=== PATIENT | male | born 1955 | race Caucasian/White ===

== ENCOUNTER 2016-11-04 11:06 | Emergency (ER) | payer OTHER ==
[~2016-11-04] VITALS: Ht 171.5 cm; Wt 62.4 kg
[2016-11-04 11:13] VITALS: TEMP 36.6; Ht 171.5 cm; Wt 62.4 kg
[2016-11-04 11:33] VITALS: O2SAT 97
[2016-11-04 11:44] LABS: HEMATOCRIT 28.4 % (42-52); MEAN CELL VOLUME 73.8 fL (80-100); MEAN CORPUSCULAR HEMOGLOBIN 23.1 pg (25-34); MEAN CORPUSCULAR HGB CONC 31.3 g/dl (32-36); MEAN PLATELET VOLUME 8.2 fL (7.4-10.4); PLATELET COUNT 517 K/uL (130-400); RED BLOOD COUNT 3.85 M/uL (4.7-6.1); WHITE BLOOD COUNT 8.72 K/uL (4.8-10.8)
[2016-11-04 11:53] LABS: BUN/CREATININE RATIO 19.6 (10-20); CALCIUM 8.9 mg/dl (8.5-10.1); CREATININE 0.91 mg/dl (0.60-1.40); POTASSIUM 3.7 mmol/L (3.5-5.1)
[2016-11-04 11:57] LABS: ALB/GLOB RATIO 0.4 (0.9-2); CKMB/CK RATIO 3.1 (0-3.0)
[2016-11-04 11:59] LABS: INR 1.3 (0.9-1.1); PARTIAL THROMBOPLASTIN RATIO 1.3
--- NOTE | 2016-11-04 12:08 | DIAGNOSTIC IMAGING REPORT ---
CHEST ONE VIEW PORTABLE CLINICAL HISTORY: Chest pain. COMPARISON STUDY: No previous studies for comparison. FINDINGS: Lung volumes are normal. Linear left infrahilar density could reflect atelectasis or calcification.. There is no evidence of pulmonary edema. No consolidation is identified. Cardiomediastinal silhouette is normal. IMPRESSION: No acute cardiopulmonary findings. Electronically signed by: Natanael Zuñiga M.D. 11/04/2016 12:07 PM Dictated Date/Time: 11/04/2016 12:05 PM
[2016-11-04] MEDS ORDERED: ACETAMINOPHEN 325 MG TAB PO PRN (13:15)
[2016-11-04] MEDS ORDERED: SODIUM CHLORIDE 0.9% 1000ML 1,000 ML IV SCH (13:15)
[2016-11-04] MEDS ORDERED: ONDANSETRON INJ 2 MG/ML 2 ML VIAL IV PRN (13:15)
[2016-11-04] MEDS ORDERED: ALUMINUM/MAGNESIUM/SIMETH (MAALOX MAX) 30 ML UDC PO PRN (13:15)
[2016-11-04] MEDS ORDERED: POLYETHYLENE (MIRALAX) 17 GM PACK PO PRN (13:15)
[2016-11-04] MEDS ORDERED: MAGNESIUM HYDROXIDE SUSP 30 ML UDC PO PRN (13:15)
[2016-11-04] MEDS ORDERED: NITROGLYCERIN 0.4 MG SL PER TAB CHARGE SL PRN (13:15)
[2016-11-04] MEDS ORDERED: ZOLPIDEM TARTRATE 5 MG TAB PO PRN (13:15)
[2016-11-04 13:21] VITALS: BP 116/76; PULSE 65; O2SAT 96
[2016-11-04 13:57] LABS: FERRITIN 901.4 ng/ml (8.0-388.0)
[2016-11-04] MEDS ORDERED: IV FLUIDS COMPLETED PRN (15:30)
--- NOTE | 2016-11-04 16:41 | Medical Consult ---
Consultation Date of Consultation: Nov 04, 2016. Attending Physician: Reason for Consultation: chest pain History of Present Illness Pt seen and examined in ER for possible admission but ultimately decided to leave AMA. Pt has not seen a physician in years until being seen today for chest pain by Dr. Parra at [facility] who sent him to the ER. Pt states chest pain started while patient was sitting yesterday and waxed and waned from that time. Pain is described as tightness in the upper chest with radiation to his anterior neck. He states pain is worse with lying flat and deep inspiration and improves with activity. He currently rates pain 09/13. He was mildly SOB with the pain but this resolved. He admits to fatigue. His left thigh was crushed against a pole by a farm animal approximately 2 weeks ago and had pain in the left thigh/ calf after his injury which has resolved. Denies dizziness, syncope, diaphoresis, URI, cough, GUARDADO, palpitations, abdominal pain, reflux, nausea, vomiting, bowel or bladder changes, hematochezia, melena, edema Denies recent travel or heavy lifting. He denies any known medical problems including CAD, HTN, HL, DM, but had not been seen by a physician for years. He denies having echo or stress test in the past. No prior EGD or colonoscopy. Past Medical/Surgical History Medical Problems: (1) No significant past medical history Status: Chronic Surgical Problems: (1) S/P hernia surgery Status: Chronic Family History FH: CAD (coronary artery disease) FATHER (multiple NH's. onset in 50s.) Social History Smoking Status: Never Smoker Alcohol Use: none Drug Use: none Occupation Status: employed (self employed [employer]) Allergies Coded Allergies: No Known Allergies (Unverified , 11/04/16) Home Medications Pt does not take any medications at home. Current Inpatient Medications Current Inpatient Medications Medications (Trade) Dose Ordered Sig/Dmitri Route Start Time Stop Time Status Last Admin Dose Admin Miscellaneous (Iv Fluids Completed) 1 ea PRN PRN N/A 11/04/16 15:30 11/04/17 15:29 Review of Systems Ten point ROS performed with pertinent positives and negatives noted in HPI. Constitutional: + fatigue, + weakness Respiratory: + dyspnea on exertion, + shortness of breath Cardiovascular: + chest pain Abdomen: + GI bleeding (denies of dark stool or blood in stool ), No constipation, No diarrhea, No nausea, No pain, No problem reported, No vomiting Genitourinary - Male: No dysuria, No hematuria, No impotence, No lesions, No penile discharge, No problem reported, No urinary frequency, No urinary hesitancy, No urinary incontinence, No urinary retention, No urinary urgency Neurologic: + vertigo, + weakness Physical Exam Date Time Temp Pulse Resp B/P Pulse Ox O2 Delivery O2 Flow Rate FiO2 11/04/16 13:21 65 16 116/76 96 11/04/16 12:10 64 11/04/16 11:33 97 Room Air 11/04/16 11:13 36.6 69 20 117/71 100 Room Air General Appearance: WD/WN, no apparent distress, + pertinent finding (pleasant alert 61 y/o male, no distress) Head: normocephalic, atraumatic Eyes: normal inspection, PERRL, EOMI ENT: pharynx normal Neck: supple, no JVD, no carotid bruits, trachea midline Respiratory/Chest: lungs clear, normal breath sounds, no respiratory distress Cardiovascular: regular rate, rhythm, no murmur, normal peripheral pulses Abdomen/GI: normal bowel sounds, non tender, soft Extremities/Musculoskelatal: normal inspection, no calf tenderness, no pedal edema Neurologic/Psych: alert, normal mood/affect, oriented x 3, + pertinent finding (grossly nonfocal) Skin: normal color, warm/dry, no rash (no rash on the chest) Laboratory Results Last 24 Hours Test 11/04/16 11:25 11/04/16 11:55 White Blood Count 8.72 K/uL Red Blood Count 3.85 M/uL Hemoglobin 8.9 g/dL Hematocrit 28.4 % Mean Corpuscular Volume 73.8 fL Mean Corpuscular Hemoglobin 23.1 pg Mean Corpuscular Hemoglobin Concent 31.3 g/dl RDW Standard Deviation 45.2 fL RDW Coefficient of Variation 16.6 % Platelet Count 517 K/uL Mean Platelet Volume 8.2 fL Nucleated RBC Absolute Count (auto) 0.00 K/uL Nucleated Red Blood Cells % 0.0 % Absolute Reticulocyte Count 0.04 10^6/uL Percent Reticulocyte Count 0.9 % Prothrombin Time 14.0 SECONDS Prothromb Time International Ratio 1.3 Activated Partial Thromboplast Time 33.8 SECONDS Partial Thromboplastin Ratio 1.3 D-Dimer 860 ug/L FEU Sodium Level 135 mmol/L Potassium Level 3.7 mmol/L Chloride Level 101 mmol/L Carbon Dioxide Level 26 mmol/L Anion Gap 8.0 mmol/L Blood Urea Nitrogen 18 mg/dl Creatinine 0.91 mg/dl Est Creatinine Clear Calc Drug Dose 74.3 ml/min Estimated GFR () 104.3 Estimated GFR (Non- 90.0 BUN/Creatinine Ratio 19.6 Random Glucose 104 mg/dl Calcium Level 8.9 mg/dl Iron Level 14 mcg/dl Total Iron Binding Capacity 182 mcg/dl Ferritin 901.4 ng/ml Total Bilirubin 0.3 mg/dl Aspartate Amino Transf (AST/SGOT) 15 U/L Alanine Aminotransferase (ALT/SGPT) 15 U/L Alkaline Phosphatase 81 U/L Total Creatine Kinase 32 U/L Creatine Kinase MB 1.0 ng/ml Creatine Kinase MB Ratio 3.1 Total Protein 8.6 gm/dl Albumin 2.4 gm/dl Globulin 6.2 gm/dl Albumin/Globulin Ratio 0.4 Bedside Troponin I 0.000 ng/ml Assessment & Plan CHEST PAIN Risk factors- positive family history, no other known risk factors but has not had lipids checked EKG as per cardiology read- normal sinus rhythm, left atrial enlargement, minor anterior ST elevation most consistent with repolarization variant, peaked T waves (consider ischemia, hyperkalemia,etc.), no prior EKG for comparison Initial troponin negative; d dimer elevated ? secondary to recent leg injury CXR- no acute findings Patient declines to stay for ACS rule out- risks explained to patient including risk of arrhythmia and if develops NH at home May be related to anemia Pt prefers to f/u with his new PCP Dr. Parra later today- made appointment MICROCYTIC ANEMIA Hg is 8/9; no prior labs for comparison Declines hematochezia/ melena; Hemoccult negative per ER provider Anemia panel shows low iron, low TIBC, high ferritin Pt instructed to start OTC iron pills, avoid NSAIDs, and f/u with PCP Patient seen in collaboration with Dr. Carranza. Please see her addendum. ATTENDING NOTE : pt seen and examined, in agreement with above consult by Danette MORA[facility] ED consult done as pt refused to be admitted 61 yo Male , Tenriism gentleman does not follow with any Physician in past , recently established care with PCP presents with SOB , chest pain found to be anemia HB ~ 8.9 with microcytosis MCV < 70 never had colonoscopic eval denies of any dark stool or blood in stool , does not take Over the counter NSAID's stool test in ED was Heme negative P/E: gen: no sign of distress HEENT : sclera non icteric HT: regular S1/S2 Lungs: CTA abdomen : soft non tender EXT ; No rash or deformity neuro: no focal neurological deficit A/P : Chest pain : atypical for angina , pain is aching with reproducible chest wall tenderness with GUARDADO , no hypoxia noted D D-dimer elevated , pt had recent injury to his leg from Farm animal denies of GUARDADO , works in the Farm with , 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 pt denies of any chest pain or SOB with activity mentions of being very fatigued and getting tired easily -on going for past few months possibly due to anemia pt refused to stay in hospital for cardiac work up -does not have insurance , wants to follow up with Family physician in office for further work up currently chest pain free , feels comfortable Anemia : symptomatic microcytic possible Fe deficiency anemia need to R./O GI bleed never had colonoscopy wants to have work up done as out pt advices for OTC Fe supplement , Fruits and vegetables rich with Fe avoid NSAID's ( pt does not take any ) needs follow up with Family physician Pt left from ED /got discharged -refused hospital stay
--- NOTE | 2016-11-04 22:17 | EMERGENCY ROOM VISIT NOTE ---
ED Visit Note First contact with patient: 12:24 Chief Complaint: Chest tightness. History of Present Illness: Mr. Campos is a 61 year-old white male who ambulates into the ED accompanied by his complaining of chest pressure pain. Historically patient reports no significant past medical history Patient reports a acute onset of chest tightness that started approximately 14 hours ago. Since that time the pain has been constant but has slightly waxed and waned in intensity. He describes his discomfort as a tightness and places over his upper chest. The discomfort is radiating up both sides of the neck. His pain worsens when he lies down and slightly improves when he is active. He has not taken any medications for his symptoms prior to arrival at the hospital. Associated with his discomfort he reports mildly he has been short of breath but feels like that has improved. He does report he has no history of heart disease but his father had multiple heart attacks. Patient denies fevers, chills, sweats, skin eruptions, skin color changes, upper respiratory tract symptoms, wheezing, cough shortness of breath, orthopnea , dependent edema, previous clots, claudication, cramping, recent surgery/ inactivity/extended travel, abdominal pain, nausea, vomiting, diarrhea, constipation, rectal bleeding, black/tarry stools, urinary symptoms, back/flank pain. Review of Systems: As noted above in history of present illness. All body systems were reviewed and found to be negative as noted above. Past Medical History: Patient denies. Current Medications: Patient denies. Allergies to Medications: Patient denies. Social History: Patient is currently employed; he feels safe in his home environment; he denies tobacco use. Physical Examination: Vital Signs: Date Time Temp Pulse Resp B/P Pulse Ox O2 Delivery O2 Flow Rate FiO2 11/04/16 13:21 65 16 116/76 96 11/04/16 12:10 64 11/04/16 11:33 97 Room Air 11/04/16 11:13 36.6 69 20 117/71 100 Room Air GENERAL: 61-year-old male in mild distress due to pain, nontoxic-appearing, afebrile and hemodynamically stable. NEUROLOGICAL: Awake, alert and oriented to person, place and time. Answering questions appropriately and following commands. Normal gait. Good hand eye coordination. SKIN: Warm, dry and pink. No soft tissue eruptions or trauma noted. HEENT: Atraumatic and normocephalic. PERRLA. Sclera white and conjunctiva pale. Oral cavity moist and pink. Pharynx is nonerythematous or edematous. Speech normal. No lymphadenopathy. Trachea midline. No jugular venous distention. BACK: No tenderness over the bony spine. No CVA tenderness. THORAX: Lungs sounds are clear to auscultation and equal bilaterally with symmetrical chest wall. No wheezing, rales or rhonchi. No crepitus, tenderness , subcutaneous air or deformities noted. HEART: Regular rate and rhythm. No gallops, rubs or murmurs are appreciated. No lifts, heaves or thrills. PMI is not displaced. ABDOMEN: Flat, soft and nontender. Positive bowel sounds in all quadrants. No guarding, rigidity or organomegaly. RECTAL: No external tags or hemorrhoids. Normal rectal tone. No palpable rectal masses. The prostrate is confirmed without tenderness. Heme-negative stools. EXTREMITIES: Moves all extremities well on command and with purpose. All distal neurovascular statuses are intact and equal bilaterally. No dependent edema or calf tenderness/cords. ED Course: Patient is assessed as noted above. Laboratory Testing: Test 11/04/16 11:25 11/04/16 11:55 Range/Units White Blood Count 8.72 4.8-10.8 K/uL Red Blood Count 3.85 4.7-6.1 M/uL Hemoglobin 8.9 14.0-18.0 g/dL Hematocrit 28.4 42-52 % Mean Corpuscular Volume 73.8 80-100 fL Mean Corpuscular Hemoglobin 23.1 25-34 pg Mean Corpuscular Hemoglobin Concent 31.3 32-36 g/dl RDW Standard Deviation 45.2 36.4-46.3 fL RDW Coefficient of Variation 16.6 11.5-14.5 % Platelet Count 517 130-400 K/uL Mean Platelet Volume 8.2 7.4-10.4 fL Nucleated RBC Absolute Count (auto) 0.00 0-0 K/uL Nucleated Red Blood Cells % 0.0 % Absolute Reticulocyte Count 0.04 0.02-0.10 10^6/uL Percent Reticulocyte Count 0.9 0.5-2.0 % Prothrombin Time 14.0 9.0-12.0 SECONDS Prothromb Time International Ratio 1.3 0.9-1.1 Activated Partial Thromboplast Time 33.8 21.0-31.0 SECONDS Partial Thromboplastin Ratio 1.3 D-Dimer 860 0-500 ug/L FEU Sodium Level 135 136-145 mmol/L Potassium Level 3.7 3.5-5.1 mmol/L Chloride Level 101 98-107 mmol/L Carbon Dioxide Level 26 21-32 mmol/L Anion Gap 8.0 3-11 mmol/L Blood Urea Nitrogen 18 7-18 mg/dl Creatinine 0.91 0.60-1.40 mg/dl Est Creatinine Clear Calc Drug Dose 74.3 ml/min Estimated GFR () 104.3 Estimated GFR (Non- 90.0 BUN/Creatinine Ratio 19.6 10-20 Random Glucose 104 70-99 mg/dl Calcium Level 8.9 8.5-10.1 mg/dl Iron Level 14 35-175 mcg/dl Total Iron Binding Capacity 182 250-450 mcg/dl Ferritin 901.4 8.0-388.0 ng/ml Total Bilirubin 0.3 0.2-1 mg/dl Aspartate Amino Transf (AST/SGOT) 15 15-37 U/L Alanine Aminotransferase (ALT/SGPT) 15 12-78 U/L Alkaline Phosphatase 81 45-117 U/L Total Creatine Kinase 32 39-308 U/L Creatine Kinase MB 1.0 0.5-3.6 ng/ml Creatine Kinase MB Ratio 3.1 0-3.0 Total Protein 8.6 6.4-8.2 gm/dl Albumin 2.4 3.4-5.0 gm/dl Globulin 6.2 2.5-4.0 gm/dl Albumin/Globulin Ratio 0.4 0.9-2 Bedside Troponin I 0.000 0-0.045 ng/ml Chest X-Ray: Was read by myself and the radiologist showing no acute infiltrates , effusions or pneumothorax. Normal pulmonary vasculature. Normal heart silhouette and bony anatomy. Radiologist does note a linear left infrahilar density that could represent atelectasis or calcification. EKG: Was read by myself and reviewed with Dr. Hernández; shows normal sinus rhythm with ventricular rate of 63 bpm. Peak T waves of questionable etiology but ischemia and hyperkalemia was considered. Also noted was minor anterior bleed ST elevation of questionable etiology. No previous to compare. Patient was hydrated with normal saline. Patient's case was reviewed with Dr. Hernández; diagnostic approach, treatment, disposition and plan. Patient's case was reviewed with case management and [facility]/admissions . Patient was educated about tonight's findings. I did receive a call from the [facility] and was told that the patient request to leave AGAINST MEDICAL ADVICE. I went to reassess the patient at that time he reports he was pain-free. We discussed in length the risks of his current anemia up to and including . He reports he was willing to accept these risks and signed out AGAINST MEDICAL ADVICE. Patient was discharged accompanied by his . Clinical Impression: Acute chest pain. Severe anemia. Decision-Making: Initially my differential diagnosis I considered acute coronary syndrome, thoracic aneurysm, pneumothorax, pulmonary embolism, musculoskeletal disorder, and other causes. Disposition: Patient discharged home in stable condition accompanied by his ; he remained pain pain and symptom-free. Plan: Patient was encouraged to continue his iron use. Patient was encouraged to follow-up this community clinic. Patient was encouraged return to the ED if he would change his mind on observation/admission, worsening symptoms, worsening signs of bleeding or any/ concerning symptoms.
[2017-01-19] MEDS ORDERED: OMEGCAP2 PO (08:27)
[2017-01-19] MEDS ORDERED: ASCA500 PO (08:27)
[2017-01-19] MEDS ORDERED: [UNRECOGNIZED DRUG - OTHER] PO (08:27)
[2017-01-19] MEDS ORDERED: MULT-506 PO (08:27)
[2017-01-19] MEDS ORDERED: IRON SUPPLEMENTS PO (08:27)
[2017-01-19] MEDS ORDERED: CYAN10005 PO (08:27)
[2017-01-19] MEDS ORDERED: [UNRECOGNIZED DRUG - CODE] PO (08:27)
[2017-04-20] MEDS ORDERED: [UNRECOGNIZED DRUG - OTHER] PO (08:50)
[2017-04-20] MEDS ORDERED: [UNRECOGNIZED DRUG - OTHER] PO (08:50)
[2017-04-20] MEDS ORDERED: [UNRECOGNIZED DRUG - OTHER] PO (08:50)
[2017-04-20] MEDS ORDERED: [UNRECOGNIZED DRUG - OTHER] PO (08:50)
[2017-04-20] MEDS ORDERED: [UNRECOGNIZED DRUG - OTHER] PO (08:50)
[2017-04-20] MEDS ORDERED: [UNRECOGNIZED DRUG - OTHER] PO (08:50)
[2017-04-20] MEDS ORDERED: [UNRECOGNIZED DRUG - OTHER] PO (08:50)
[2017-04-20] MEDS ORDERED: [UNRECOGNIZED DRUG - OTHER] PO (08:50)
[2017-04-20] MEDS ORDERED: [UNRECOGNIZED DRUG - OTHER] PO (08:50)
[2017-04-20] MEDS ORDERED: TURMERIC PO (08:53)
[2017-04-20] MEDS ORDERED: BLOOD BUILDER PO (08:53)
[2017-04-20] MEDS ORDERED: SUPER ENZYMES PO (08:53)
[2017-04-20] MEDS ORDERED: [UNRECOGNIZED DRUG - OTHER] PO (08:53)
[2017-04-20] MEDS ORDERED: [UNRECOGNIZED DRUG - CODE] PO (08:53)
[2017-04-20] MEDS ORDERED: PLEXUS PROBIO PO (08:55)
[2017-04-20] MEDS ORDERED: OMEG10007 PO (08:55)
[2017-04-20] MEDS ORDERED: CYAN100020 PO (08:55)
[2017-04-20] MEDS ORDERED: ESTER C PO (08:55)
[2017-04-20] MEDS ORDERED: [UNRECOGNIZED DRUG - OTHER] PO ×2 (08:55)
[2017-04-20] MEDS ORDERED: [UNRECOGNIZED DRUG - OTHER] PO (08:58)
[2017-04-20] MEDS ORDERED: [UNRECOGNIZED DRUG - OTHER] PO (08:58)
[2017-04-20] MEDS ORDERED: [UNRECOGNIZED DRUG - OTHER] PO (08:58)
== END 2016-11-04 15:07 | disposition left against medical advice (07) ==
LOC: C.EDB 11:08 → C.EDC 15:07
DX: R07.89 Other chest pain (principal); D64.9 Anemia, unspecified; R06.02 Shortness of breath; Z82.49 Family history of ischemic heart disease and other diseases of the circulatory system

== ENCOUNTER → 2017-01-20 | Day surgery (SDC) | payer OTHER ==
[2017-01-19 08:27] VITALS: Ht 170.2 cm; Wt 60.0 kg
[~2017-01-20] VITALS: Ht 170.2 cm; Wt 60.0 kg
[~2017-01-20] MED LIST: ACET-749 PO; ASCA500 PO; BLOOD BUILDER PO; CLC100 PO; CYAN100020 PO; CYAN10005 PO; ESTER C PO; IRON SUPPLEMENTS PO; LIDOCAINE HCL 2% 2 ML VIAL (20MG/ML) ONE; MIDAZOLAM HCL 1 MG/ML 2ML VIAL ONE; MULT-506 PO; OMEG10007 PO; OMEGCAP2 PO; ONDANSETRON INJ 2 MG/ML 2 ML VIAL ONE; PLEXUS PROBIO PO; PROPOFOL IV EMULSION 10 MG/ML 20 ML VIAL IV ONE; SODIUM CHLORIDE 0.9% 500ML 500 ML IV ONE; SUPER ENZYMES PO; TURMERIC PO; [UNRECOGNIZED DRUG - CODE] PO; [UNRECOGNIZED DRUG - CODE] PO; [UNRECOGNIZED DRUG - OTHER] PO; [UNRECOGNIZED DRUG - OTHER] PO; [UNRECOGNIZED DRUG - OTHER] PO; [UNRECOGNIZED DRUG - OTHER] PO; [UNRECOGNIZED DRUG - OTHER] PO; [UNRECOGNIZED DRUG - OTHER] PO; [UNRECOGNIZED DRUG - OTHER] PO; [UNRECOGNIZED DRUG - OTHER] PO; [UNRECOGNIZED DRUG - OTHER] PO; [UNRECOGNIZED DRUG - OTHER] PO; [UNRECOGNIZED DRUG - OTHER] PO; [UNRECOGNIZED DRUG - OTHER] PO; [UNRECOGNIZED DRUG - OTHER] PO; [UNRECOGNIZED DRUG - OTHER] PO; [UNRECOGNIZED DRUG - OTHER] PO
[2017-01-20 12:28] VITALS: TEMP 36.9
--- NOTE | 2017-01-20 12:47 | Endo History and Physical ---
History & Physical Date of Service: January 20, 2017. Chief Complaint: Anemia Referring Physician: Dr Amandeep Parra History of Present Illness 61 yo CM who presents for Colonoscopy secondary to anemia. Past Surgical History Hx Cardiac Surgery: No Hx Internal Defibrillator: No Hx Pacemaker: No Hx Abdominal Surgery: Yes (HERNIA REPAIR) Hx of Implantable Prosthesis: No Hx Post-Op Nausea and Vomiting: No Hx Cancer Surgery: No Hx Thoracic Surgery: No Hx Orthopedic: No Hx Urinary Tract Surgery: No Family History None Social History Smoking Status: Never Smoker Hx Substance Use: No Hx Alcohol Use: No Allergies Coded Allergies: No Known Allergies (Verified , 01/20/17) Current Medications Reported Home Medications Medications Dose Route/Sig Max Daily Dose Days Date Category Vitamin C (Ascorbic Acid) 500 Mg Tab 1 Tab PO DAILY 01/19/17 Reported Vitamin B-12 (Cyanocobalamin) 1,000 Mcg Tab 1,000 Mcg PO DAILY 01/19/17 Reported Fish Oil ([place]-3 Fatty Acids) 1 Cap Cap 1 Cap PO DAILY 01/19/17 Reported Multivitamin (Multivitamins) Tab 1 Tab PO DAILY 01/19/17 Reported [Energizing Iron] 2 Tabs PO DAILY 01/19/17 Reported Chlorophyll (Chlorophyll-Thymol) 1 Tab Tab 2 Tabs PO DAILY 01/19/17 Reported [Iron Supplements] 2 Tabs PO DAILY 01/19/17 Reported Vital Signs Weight (Kilograms): 60 Height (Feet): 5 Height (Inches): 7 Date Time Temp Pulse Resp B/P Pulse Ox O2 Delivery O2 Flow Rate FiO2 01/20/17 12:28 36.9 73 20 128/76 98 Room Air Physical Exam General Appearance: WD/WN, no apparent distress Respiratory/Chest: Auscultation: breath sounds normal Cardiovascular: Heart Auscultation: RRR Abdomen: Bowel Sounds: normal Inspection & Palpation: soft, non-distended, no tenderness, guarding & rebound Assessment and Plan Assessment: 61 yo CM who presents for Colonoscopy secondary to anemia. Plan: Proceed with colonoscopy.
--- NOTE | 2017-01-20 13:34 | GI REPORT ---
Procedure Date: 01/20/2017 12:59 PM Procedure: Colonoscopy Indications: Iron deficiency anemia Medicines: Monitored Anesthesia Care Complications: No immediate complications. Estimated Blood Loss: Estimated blood loss: none. Procedure: Pre-Anesthesia Assessment: - Prior to the procedure, a History and Physical was performed, and patient medications and allergies were reviewed. The patient's tolerance of previous anesthesia was also reviewed. The risks and benefits of the procedure and the sedation options and risks were discussed with the patient. All questions were answered, and informed consent was obtained. Prior Anticoagulants: The patient has taken no previous anticoagulant or antiplatelet agents. ASA Grade Assessment: II - A patient with mild systemic disease. After reviewing the risks and benefits, the patient was deemed in satisfactory condition to undergo the procedure. After I obtained informed consent, the scope was passed under direct vision. Throughout the procedure, the patient's blood pressure, pulse, and oxygen saturations were monitored continuously. The scope was introduced through the anus and advanced to the terminal ileum. The colonoscopy was performed without difficulty. The patient tolerated the procedure well. The quality of the bowel preparation was good. The terminal ileum, ileocecal valve, appendiceal orifice, and rectum were photographed. Findings: A 3 mm polyp was found in the ascending colon. The polyp was sessile. The polyp was removed with a cold snare. Resection and retrieval were complete. Non-bleeding internal hemorrhoids were found during retroflexion. The hemorrhoids were small. Impression: - One 3 mm polyp in the ascending colon, removed with a cold snare. Resected and retrieved. - Non-bleeding internal hemorrhoids. Recommendation: - Resume previous diet. - Continue present medications. - Repeat colonoscopy for surveillance based on pathology results. - Return to primary care physician as previously scheduled. Robel Rasmussen DO 01/20/2017 1:33:59 PM This report has been signed electronically. Note Initiated On: 01/20/2017 12:59 PM I attest to the content of the Intraoperative Record and orders documented therein, exceptions below
--- NOTE | 2017-01-20 13:35 | Discharge Instructions ---
Endoscopy Patient Instructions Date / Procedure(s) Performed January 20, 2017. Colonoscopy Allergy Information Coded Allergies: No Known Allergies (Verified , 01/20/17) Discharge Date / Findings January 20, 2017. Colon polyp Internal hemorrhoids Medication Instructions Stopped Medication(s): Iron OK to resume all medications today as prescribed. Reported Home Medications Medications Dose Route/Sig Max Daily Dose Days Date Category Vitamin C (Ascorbic Acid) 500 Mg Tab 1 Tab PO DAILY 01/19/17 Reported Vitamin B-12 (Cyanocobalamin) 1,000 Mcg Tab 1,000 Mcg PO DAILY 01/19/17 Reported Fish Oil ([place]-3 Fatty Acids) 1 Cap Cap 1 Cap PO DAILY 01/19/17 Reported Multivitamin (Multivitamins) Tab 1 Tab PO DAILY 01/19/17 Reported [Energizing Iron] 2 Tabs PO DAILY 01/19/17 Reported Chlorophyll (Chlorophyll-Thymol) 1 Tab Tab 2 Tabs PO DAILY 01/19/17 Reported [Iron Supplements] 2 Tabs PO DAILY 01/19/17 Reported Provider Instructions Activity Restrictions - No exercising or heavy lifting for 24 hours. - Do not drink alcohol the day of the procedure. - Do not drive a car or operate machinery until the day after the procedure. - Do not make any important decisions or sign important papers in 24 hours after the procedure. Following Day: - Return to full activity which may include returning to work/school. Diet Start your diet with liquids and light foods (jello, soup, juice, toast). Then eat your usual diet if not nauseated. Treatment For Common After Affects For mild abdominal pain, bloating, or excessive gas: - Rest - Eat lightly - Lie on right side Follow-Up Information Follow-up with Dr Amandeep Parra as scheduled Anesthesia Information What You Should Know You have had a procedure that required some medicine to reduce anxiety and discomfort. This treatment is called moderate sedation. After receiving the treatment, you may be sleepy, but you will be able to breathe on your own. The effects of the treatment may last for several hours. Follow these instructions along with Activity/Diet recommendations noted above: * Do NOT do anything where dizziness or clumsiness would be dangerous. * Rest quietly at home today, then you can be up and about tomorrow. * Have a responsible person stay with you the rest of today. * You may have had an I.V. today. If so, you may take the dressing off later today. Recommendations Call your doctor if: * Trouble breathing * Continuous vomiting for more than 24 hours * Temperature above 101 degrees * Severe abdominal pain or bloating * Pain not relieved by pain medicine ordered * There is increased drainage or redness from any incision * A large amount of rectal bleeding greater than 2-3 tablespoons. (If you had a polyp/s removed or have hemorrhoids, a small amount of blood - from the rectum is to be expected.) * You have any unanswered questions or concerns. IN THE EVENT OF A SERIOUS EMERGENCY, GO TO THE NEAREST EMERGENCY ROOM Your discharge instructions were prepared by provider Robel Rasmussen. Patient Instructions Signature Page Antwan Campos Patient (or Guardian) Signature/Date: I have read and understand the instructions given to me by my caregivers. Caregiver/RN/Doctor Signature/Date: The above-named patient and/or guardian has received patient instructions on this date. + Original Patient Signature Page (only) stays with chart. Please make copy for patient.
--- NOTE | 2017-01-20 13:44 | Anesthesiology Progress Note ---
Anesthesia Post Op Note Date & Time January 20, 2017 at 13:44 Vital Signs Pain Intensity: 0 Vital Signs Past 12 Hours Date Time Temp Pulse Resp B/P Pulse Ox O2 Delivery O2 Flow Rate FiO2 01/20/17 13:39 69 20 107/66 96 Room Air 01/20/17 13:32 65 20 90/57 95 Room Air 01/20/17 12:28 36.9 73 20 128/76 98 Room Air Notes Mental Status: alert / awake / arousable, participated in evaluation Pt Amnestic to Procedure: Yes Nausea / Vomiting: adequately controlled Pain: adequately controlled Airway Patency, RR, SpO2: stable & adequate BP & HR: stable & adequate Hydration State: stable & adequate Anesthetic Complications: no major complications apparent
[2017-01-20 13:56] VITALS: BP 109/68; PULSE 62; O2SAT 97
== END | disposition home or self-care (01) ==
LOC: C.GI 12:05
PROVIDERS: ATTEND Internal Medicine
DX: D50.9 Iron deficiency anemia, unspecified (principal); D12.2 Benign neoplasm of ascending colon; K64.8 Other hemorrhoids

== ENCOUNTER 2017-05-02 05:23 | Inpatient (IN) | payer OTHER ==
--- NOTE | 2017-04-20 09:25 | PAT Medication Instructions ---
Service Date Apr 20, 2017. Current Home Medication List Cyanocobalamin (Vitamin B12), 5,000 MCG PO NOON Fish Oil (Southaven-3), 1 CAP PO QAM Yellow Dock (Yellow Dock Extract), 0.25 TSP PO QAM [Aim Garden Trio], 1 DOSE PO TIDM [Bensulin], 1 TAB PO QPM [Blood Builder], 1 TAB PO BID [Cell Spare 360], 1 TAB PO AM/NOON [Cellulife Immune ], 1 TAB PO TID [Composure], 1 TAB PO BID [Dsolve Cell Recov], 5 ML PO TID [Genesis C], 1 TAB PO TID [Hemadyne Pro], 2 TAB PO NOON [Herbal Fiber], 8 TAB PO BID [Herbal Iron], 1 DOSE PO TID [Herbal Plus], 2 TAB PO QAM [Herbal Plus], 1 TAB PO QPM [Lady Mantle Tea], 2 TSP PO DAILY [Plexus Probio], 1 TAB PO QPM [Proancynol 2000], 4 TAB PO BID [Resetigen], 1 TAB PO QPM [Slippey Elm], 5 ML PO BID [Super Enzymes], 1 TAB PO AM/NOON [Turmeric], 1 TAB PO TID Medication Instructions For Your Scheduled Surgery - Hold the following medications starting 04/20/17: Fish Oil (Southaven-3), 1 CAP PO QAM Yellow Dock (Yellow Dock Extract), 0.25 TSP PO QAM [Aim Garden Trio], 1 DOSE PO TIDM [Bensulin], 1 TAB PO QPM [Blood Builder], 1 TAB PO BID [Cell Spare 360], 1 TAB PO AM/NOON [Cellulife Immune ], 1 TAB PO TID [Composure], 1 TAB PO BID [Dsolve Cell Recov], 5 ML PO TID [Genesis C], 1 TAB PO TID [Hemadyne Pro], 2 TAB PO NOON [Herbal Fiber], 8 TAB PO BID [Herbal Iron], 1 DOSE PO TID [Herbal Plus], 2 TAB PO QAM [Herbal Plus], 1 TAB PO QPM [Lady Mantle Tea], 2 TSP PO DAILY [Plexus Probio], 1 TAB PO QPM [Proancynol 2000], 4 TAB PO BID [Resetigen], 1 TAB PO QPM [Slippey Elm], 5 ML PO BID [Super Enzymes], 1 TAB PO AM/NOON [Turmeric], 1 TAB PO TID - Hold the following medications the morning of surgery: Cyanocobalamin (Vitamin B12), 5,000 MCG PO NOON If you have any questions please call us at [phone] or [phone] or [phone]
[2017-04-20 10:02] LABS: URINE APPEARANCE CLEAR (CLEAR); URINE BILIRUBIN NEG (NEG); URINE COLOR YELLOW; URINE NITRITE NEG (NEG); URINE SPECIFIC GRAVITY 1.017 (1.000-1.030); UROBILINOGEN NEG (NEG)
[2017-04-20 10:17] LABS: MANUAL MICROSCOPIC REQUIRED? NO; REVIEW REQ? NO
[2017-04-20 10:31] LABS: HEMATOCRIT 22.9 % (42-52); MEAN CELL VOLUME 72.2 fL (80-100); MEAN CORPUSCULAR HEMOGLOBIN 21.8 pg (25-34); MEAN CORPUSCULAR HGB CONC 30.1 g/dl (32-36); MEAN PLATELET VOLUME 8.3 fL (7.4-10.4); PLATELET COUNT 604 K/uL (130-400); RED BLOOD COUNT 3.17 M/uL (4.7-6.1); WHITE BLOOD COUNT 6.57 K/uL (4.8-10.8)
[2017-04-20 10:55] LABS: BASO % 0.8 %; BASO ABS # 0.05 K/uL (0-0.2); COMPLETE YES; EOS % 1.7 %; HYPOCHROMIA PRESENT; IG% 0.3 %; LYMPH % 22.8 %; MICROCYTOSIS PRESENT; MONO % 9.6 %; NEUT % 64.8 %
[2017-04-20 11:07] LABS: CALCIUM 9.5 mg/dl (8.5-10.1); CREATININE 0.69 mg/dl (0.60-1.40); POTASSIUM 3.9 mmol/L (3.5-5.1)
[~2017-05-02] VITALS: Ht 170.2 cm; Wt 60.5 kg
[2017-05-02] VITALS (10 sets, daily range): BP systolic 97–122; BP diastolic 56–72; PULSE 50–116; TEMP 36.5–36.7; O2SAT 94–98; Ht 170.2 cm; Wt 60.5 kg
[2017-05-02] MEDS ORDERED: CEFAZOLIN 2000 MG/60 ML D5W 60 ML IV SCH (06:00)
[2017-05-02] MEDS ORDERED: LACTATED RINGER'S 1000ML IV SCH (06:00)
[2017-05-02 06:20] LABS: HEMATOCRIT 29.4 % (42-52); MEAN CELL VOLUME 75.6 fL (80-100); MEAN CORPUSCULAR HEMOGLOBIN 24.9 pg (25-34); MEAN PLATELET VOLUME 8.1 fL (7.4-10.4); PLATELET COUNT 576 K/uL (130-400); RED BLOOD COUNT 3.89 M/uL (4.7-6.1); WHITE BLOOD COUNT 7.52 K/uL (4.8-10.8)
[2017-05-02] MEDS ORDERED: BUPIVACAINE 0.5 % 5 MG/1 ML MPF 30ML VIAL ONE (06:59)
[2017-05-02] MEDS ORDERED: FENTANYL CITRATE INJ 50 MCG/1 ML 2 ML VIAL ONE ×2 (07:08→09:02)
[2017-05-02] MEDS ORDERED: MIDAZOLAM HCL 1 MG/ML 2ML VIAL ONE (07:08)
--- NOTE | 2017-05-02 07:22 | History & Physical Bridge Note ---
H&P Re-Evaluation Bridge Note: I have examined the patient, reviewed the History & Physical and in the interval since the performance of the History & Physical I have noted the following changes of clinical significance: No changes noted
[2017-05-02] MEDS ORDERED: HYDROmorphone INJ 1 MG/ML SYR IV PRN (08:00)
[2017-05-02] MEDS ORDERED: MEPERIDINE HCL 25 MG/ML CARP IV PRN (08:00)
[2017-05-02] MEDS ORDERED: FLUMAZENIL 0.1 MG/1 ML 10 ML VIAL IV PRN (08:00)
[2017-05-02] MEDS ORDERED: MoRPHine SULFATE 10 MG/ML CARP/VIAL IV PRN (08:00)
[2017-05-02] MEDS ORDERED: LABETALOL HCL IV 5 MG/ML 20ML IV PRN (08:00)
[2017-05-02] MEDS ORDERED: ONDANSETRON INJ 2 MG/ML 2 ML VIAL IV PRN (08:00)
[2017-05-02] MEDS ORDERED: EpHEDrine SULFATE INJ 50 MG/ML AMP IV PRN (08:00)
[2017-05-02] MEDS ORDERED: NALOXONE HCL 0.4 MG/1 ML VIAL/CARP IV PRN (08:00)
[2017-05-02] MEDS ORDERED: ATROPINE SULFATE 0.1 MG/ML 5ML SYR IV PRN (08:00)
[2017-05-02] MEDS ORDERED: PHENYLEPHRINE 100MCG/ML 5ML SYR IV PRN (08:00)
[2017-05-02] MEDS ORDERED: PHENYLEPHRINE 100MCG/ML 5ML SYR ONE (08:10)
[2017-05-02] MEDS ORDERED: PROPOFOL IV EMULSION 10 MG/ML 20 ML VIAL IV ONE (08:10)
[2017-05-02] MEDS ORDERED: GLYCOPYRROLATE INJ 0.2 MG/ML VIAL ONE (08:10)
[2017-05-02] MEDS ORDERED: LIDOCAINE HCL 2% 2 ML VIAL (20MG/ML) ONE (08:10)
[2017-05-02] MEDS ORDERED: ROCURONIUM BROMIDE 10 MG/ML 5 ML VIAL IV ONE ×2 (08:10→09:01)
[2017-05-02] MEDS ORDERED: NEOSTIGMINE METHYLSULFATE 5 MG/5 ML SYR ONE (08:10)
[2017-05-02] MEDS ORDERED: ONDANSETRON INJ 2 MG/ML 2 ML VIAL ONE (08:10)
[2017-05-02] MEDS ORDERED: LARYING-O-JET KIT (LTA) ONE ×2 (08:10)
[2017-05-02] MEDS ORDERED: DEXAMETHASONE SOD INJ 4 MG/ML VIAL ONE (08:10)
[2017-05-02] MEDS ORDERED: EpHEDrine SULFATE 50MG/5ML SYR ONE (08:10)
[2017-05-02] MEDS ORDERED: TISSEEL FIBRIN SEALANT 10ML TOP ONE (08:50)
[2017-05-02] MEDS ORDERED: FLOSEAL HEMOSTATIC MATRIX 10ML TOP ONE (08:50)
[2017-05-02 10:49] LABS: HEMATOCRIT 29.1 % (42-52); MEAN CELL VOLUME 76.4 fL (80-100); MEAN CORPUSCULAR HEMOGLOBIN 23.9 pg (25-34); MEAN PLATELET VOLUME 8.2 fL (7.4-10.4); PLATELET COUNT 518 K/uL (130-400); RED BLOOD COUNT 3.81 M/uL (4.7-6.1); WHITE BLOOD COUNT 14.59 K/uL (4.8-10.8)
--- NOTE | 2017-05-02 10:54 | [facility] Operative Report ---
Operative Report Operative Date May 02, 2017. Pre-Operative Diagnosis Left Renal Mass Post-Operative Diagnosis Left Renal Mass Procedure(s) Performed Left Laparoscopic Hand-Assisted Nephrectomy Surgeon Dr Zimmer [place] [employer] Surgeon(s) Mary DIXON Estimated Blood Loss 125cc Findings Very large left renal mass; no palpable adenopathy Specimens As per Surgeon A. Left Kidney Drains Antoine Anesthesia Gen. Complication(s) None Disposition Recovery Room / PACU (stable) Indications Large left renal mass; anemia of chronic disease Description of Procedure Antwan Campos was identified in the preoperative holding area, appropriate informed consent reviewed and completed, and the patient was transported to the operating suite. Upon arrival he received appropriate preoperative antibiotics in the form of Ancef and general anesthesia. His placed a right side down left side up lateral decubitus position where he was padded and braced in standard fashion. Underwent a standard sterile prep and had a Antoine inserted. I begin the case by making a left-sided since style incision in the lower quadrant. Extended from the lateral border of the rectus towards anterior superior iliac spine. He is an extremely thin man, and immediately upon entry through the dermis with visualized external oblique musculature and fascia. Incise this sharply before exposing the internal oblique fascia and incising this sharply as well. Transversalis and peritoneum were fused together opened this adjacent to the rectus with Metzenbaum scissors performed a finger sweep ensure no adhesions. Site was clear and expanded my incision for the full length. I then mobilized the colon through this incision by incising the white line of Toldt with Metzenbaum scissors. This dissection towards the kidney as well as inferiorly towards the external back artery. Of note the large renal mass was immediately palpable. Then placed a hand port and insufflated the abdomen. Utilizing a 12 mm Visiport placed through the hand port, I was able to perform a laparoscopic inspection of the abdomen. Renal mass was readily visible, the colon was noted to be relatively lateral covering the entire renal mass and adhered to the inferior aspect of the spleen. I inspected the anterior abdominal wall from my additional locations and these were free of adhesions. I place a 12 mm port 1 fingerbreadth below the costal margin of the rectus border in the second port 8 cm below this. With a hand to the hand port, I was able to continue mobilization of the colon medially. I was somewhat adherent to the underlying renal mass however I was able to dissect this cleanly. Superiorly was adhered to the underside of the spleenable to gently teased through these adhesions elevating the spleen cephalad and colon medially. After mobilizing the colon sufficiently, turned my attention to the inferior cone of Gerota's fascia. He has very little fat in this area however was somewhat challenging first identified the ureter and the gonadal vein. I moved lower was able to identify the vein is across the iliac artery and immediately adjacent to it I discovered the gonadal vein. Dissected over the gonadal vein after creating a window between the medial aspect of the gonadal lateral aspect of the aorta. As the gonadal up to the renal hilum and identified the renal vein. No thrill vein was running somewhat in a cephalad/caudal direction rather than medial lateral likely as a result of the mass effect from the kidney tumor. I was able to identify the adrenal gland and the adrenal vein. He is also noted to have a large lumbar vein coming off the medial aspect of the renal. I created a window around the vein in end simultaneously incorporated the artery was palpable medially posterior to the vein. These windows were created lateral to both adrenal vein and the gonadal vein. I passed a 60 mm vascular staple load was able to control vasculature and a single load. Fired a second staple load across across the medial superior border of the kidney was the adrenal and the kidney itself. And then returned my attention to the lower chondral rest controlled the gonadal and ureter with a staple load across this area. I put clips across the gonadal closer to the renal vein stump, and transected below these clips. I continue to mobilize lateral aspect of the kidney with a combination of blunt dissection and Harmonic scalpel. Superior aspect of the kidney was most adherent, I was able to control this with a combination again of Harmonic scalpel and an additional staple load. After freeing the specimen entirely, I was able to extract it through the hand port. I then removed the hand port and inspected the renal fossa through the incision. There is one small oozing vessels of the lateral border of the dose muscle, I was able to control this with a [id number] 0 Vicryl stitch. The remaining aspects the fossa were hemostatic. Place the hand port and reinsufflated the abdomen. I inspected the superior medial aspects of the dissection that were not readily visible without insufflation. I placed FloSeal followed by Tisseel across the hilar structures/stumps and along the lateral border of the adrenal gland. Can confirmed excellent hemostasis before ending the laparoscopic portion of the case. I closed the 212 mm left ports utilizing a [id number] 0 Vicryl stitch. Close the hand port and a series of layers. Peritoneum was reapproximated using a running 0 Vicryl followed by closure of the internal oblique fascia utilizing another running 0 Vicryl. Sternal oblique fascia was closed in the third layer utilizing a third 0 Vicryl. Incisions were all infiltrated with half percent Marcaine before skin was closed with 4-0 Monocryl. The robot was placed across the incisions case concluded. Patient was extubated and taken to the PACU in stable condition. I attest to the content of the Intraoperative Record and any orders documented therein. Any exceptions are noted below.
[2017-05-02 11:07] LABS: MEAN CORPUSCULAR HGB CONC 31.3 g/dl (32-36)
[2017-05-02 11:12] LABS: BUN/CREATININE RATIO 20.6 (10-20); CALCIUM 9.5 mg/dl (8.5-10.1); CREATININE 0.92 mg/dl (0.60-1.40); POTASSIUM 4.9 mmol/L (3.5-5.1)
--- NOTE | 2017-05-02 11:36 | Anesthesiology Progress Note ---
Anesthesia Post Op Note Date & Time May 02, 2017 at 11:36 Vital Signs Pain Intensity: 0 Vital Signs Past 12 Hours Date Time Temp Pulse Resp B/P (MAP) Pulse Ox O2 Delivery O2 Flow Rate FiO2 05/02/17 11:11 108/65 05/02/17 11:10 57 12 96 05/02/17 11:10 56 12 05/02/17 11:06 112/64 05/02/17 11:05 58 15 95 05/02/17 11:05 58 15 05/02/17 11:03 36.9 59 22 112/64 (72) 95 Mask 4 05/02/17 11:01 110/65 05/02/17 11:00 59 15 93 05/02/17 11:00 59 15 05/02/17 10:56 109/64 05/02/17 10:55 59 14 05/02/17 10:55 59 14 92 05/02/17 10:54 60 22 92 05/02/17 10:54 61 22 05/02/17 10:51 109/66 05/02/17 10:49 60 12 95 05/02/17 10:49 60 12 05/02/17 10:46 105/67 05/02/17 10:44 60 13 05/02/17 10:44 60 13 96 05/02/17 10:43 60 19 97 05/02/17 10:43 60 19 05/02/17 10:41 112/68 05/02/17 10:38 60 15 05/02/17 10:38 60 15 96 05/02/17 10:36 109/67 05/02/17 10:33 64 16 97 05/02/17 10:33 63 16 05/02/17 10:30 116/65 05/02/17 10:28 37.0 62 14 116/65 (75) 96 Mask 10 05/02/17 10:28 64 28 98 05/02/17 10:28 64 28 05/02/17 05:44 36.7 72 20 115/72 Notes Mental Status: alert / awake / arousable, participated in evaluation Pt Amnestic to Procedure: Yes Nausea / Vomiting: adequately controlled Pain: adequately controlled Airway Patency, RR, SpO2: stable & adequate BP & HR: stable & adequate Hydration State: stable & adequate Anesthetic Complications: no major complications apparent
[2017-05-02] MEDS: LACTATED RINGER'S 1000ML 1,000 ML IV SCH ×2 (12:00→12:31)
[2017-05-02] MEDS: HYDROmorphone INJ 1 MG/ML SYR IV PRN ×3 (12:30→20:53)
[2017-05-02] MEDS: ACETAMINOPHEN 500 MG TAB PO SCH ×2 (12:31→19:43)
[2017-05-02] MEDS ORDERED: COUGH DROP (SUGAR FREE) LOZ 24 LOZ/1 BOX ONE (12:34)
[2017-05-02] MEDS ORDERED: NURSING VERBAL MED ORDER ONE (12:45)
[2017-05-02] MEDS ORDERED: COUGH DROP (SUGAR FREE) LOZ 24 LOZ/1 BOX PO PRN (13:00)
[2017-05-02] MEDS: ONDANSETRON INJ 2 MG/ML 2 ML VIAL IV PRN (13:42)
[2017-05-02] MEDS: CEFAZOLIN IV 1,000 MG in DEXTROSE 5% 50ML 50 ML IV SCH ×2 (15:24→23:59)
[2017-05-02 16:34] LABS: INR 1.4 (0.9-1.1); PROTHROMBIN TIME (PATIENT) 14.9 SECONDS (9.0-12.0)
[2017-05-02] MEDS: DOCUSATE SODIUM 100 MG CAP PO SCH (20:50)
[2017-05-03] MEDS: ACETAMINOPHEN/CODEINE 300/30MG TAB PO PRN ×2 (00:54→10:35)
[2017-05-03] MEDS: HYDROmorphone INJ 1 MG/ML SYR IV PRN ×2 (03:39→11:39)
[2017-05-03] MEDS: LACTATED RINGER'S 1000ML 1,000 ML IV SCH ×3 (03:50→17:33)
[2017-05-03 04:03] VITALS: BP 118/71; PULSE 56; TEMP 36.5; O2SAT 94
[2017-05-03] MEDS: ACETAMINOPHEN 500 MG TAB PO SCH ×5 (05:42→23:25)
[2017-05-03 07:15] VITALS: O2SAT 94
[2017-05-03] MEDS: DOCUSATE SODIUM 100 MG CAP PO SCH ×2 (07:43→20:35)
[2017-05-03 07:44] LABS: BASO % 0.3 %; BASO ABS # 0.02 K/uL (0-0.2); EOS % 0.8 %; IG% 0.4 %; LYMPH % 11.5 %; LYMPH ABS # 0.86 K/uL (1.2-3.4); MEAN CELL VOLUME 76.7 fL (80-100); MEAN CORPUSCULAR HEMOGLOBIN 24.1 pg (25-34); MEAN CORPUSCULAR HGB CONC 31.4 g/dl (32-36); MEAN PLATELET VOLUME 8.4 fL (7.4-10.4); PLATELET COUNT 544 K/uL (130-400); RED BLOOD COUNT 3.65 M/uL (4.7-6.1); WHITE BLOOD COUNT 7.48 K/uL (4.8-10.8)
[2017-05-03] MEDS: HEPARIN SOD 5000 UNIT/0.5 ML CARP SQ SCH ×2 (07:44→20:38)
[2017-05-03] MEDS: CEFAZOLIN IV 1,000 MG in DEXTROSE 5% 50ML 50 ML IV SCH (07:46)
[2017-05-03 08:05] VITALS: BP 113/68; PULSE 47; TEMP 36.4; O2SAT 96
[2017-05-03 08:12] LABS: CREATININE 1.2 mg/dl (0.60-1.40); POTASSIUM 4.2 mmol/L (3.5-5.1)
--- NOTE | 2017-05-03 08:28 | Progress Note ---
Subjective Date of Service: May 03, 2017. Subjective Pt evaluation today including: conversation w/ patient, chart review Voiding: crump catheter in place (patent, draining clear, yellow urine) 62 yo male s/p left HALN. Pt c/o some incisional pain and fatigue this morning. H&H noted to be 8.8 and 28.0. Cr is 1.2. I&Os are acceptable. Review of Systems Constitutional: No fever, No chills Respiratory: No shortness of breath Cardiac: No chest pain Abdomen: + pain (incisional), No nausea, No vomiting Male : No hematuria Heme: No abnormal bleeding/bruising Objective Vital Signs Date Time Temp Pulse Resp B/P (MAP) Pulse Ox O2 Delivery O2 Flow Rate FiO2 05/03/17 08:05 36.4 47 16 113/68 (83) 96 Room Air 05/03/17 07:15 94 Room Air 2.0 05/03/17 04:03 36.5 56 15 118/71 (87) 94 Room Air 05/02/17 23:45 Nasal Cannula 2.0 05/02/17 23:45 36.5 50 15 113/68 (83) 96 Room Air 05/02/17 19:31 36.5 54 17 105/67 (80) 97 Room Air 05/02/17 15:43 36.5 54 17 120/70 (87) 97 Room Air 05/02/17 15:30 Nasal Cannula 2.0 05/02/17 14:50 36.5 60 16 104/65 (78) 96 Nasal Cannula 2.0 05/02/17 13:39 116 18 97/56 (70) 96 Nasal Cannula 2.0 05/02/17 12:40 36.6 57 12 107/62 (77) 97 Nasal Cannula 2.0 05/02/17 12:30 57 15 120/70 (87) 97 05/02/17 12:12 53 16 122/71 (88) 98 Nasal Cannula 2.0 05/02/17 11:40 96 Nasal Cannula 2.0 05/02/17 11:40 36.5 18 115/68 (84) 94 Nasal Cannula 2.0 05/02/17 11:40 96 Nasal Cannula 2.0 05/02/17 11:11 108/65 05/02/17 11:10 57 12 96 05/02/17 11:10 56 12 8/29/17 11:06 112/64 05/02/17 11:05 58 15 95 05/02/17 11:05 58 15 05/02/17 11:03 36.9 59 22 112/64 (72) 95 Mask 4 05/02/17 11:01 110/65 05/02/17 11:00 59 15 93 05/02/17 11:00 59 15 05/02/17 10:56 109/64 05/02/17 10:55 59 14 05/02/17 10:55 59 14 92 05/02/17 10:54 60 22 92 05/02/17 10:54 61 22 05/02/17 10:51 109/66 05/02/17 10:49 60 12 95 05/02/17 10:49 60 12 05/02/17 10:46 105/67 05/02/17 10:44 60 13 05/02/17 10:44 60 13 96 05/02/17 10:43 60 19 97 05/02/17 10:43 60 19 05/02/17 10:41 112/68 05/02/17 10:38 60 15 05/02/17 10:38 60 15 96 05/02/17 10:36 109/67 05/02/17 10:33 64 16 97 05/02/17 10:33 63 16 05/02/17 10:30 116/65 05/02/17 10:28 37.0 62 14 116/65 (75) 96 Mask 10 05/02/17 10:28 64 28 98 05/02/17 10:28 64 28 Physical Exam General Appearance: no apparent distress, + thin Eyes: normal inspection ENT: hearing grossly normal Neck: no JVD Respiratory/Chest: no respiratory distress, no accessory muscle use Cardiovascular: no JVD Extremities: normal inspection Neurologic/Psychiatric: alert, normal mood/affect, oriented x 3 Skin: normal color Laboratory Results Last 24 Hours Test 05/02/17 10:36 05/02/17 16:17 05/03/17 06:54 White Blood Count 14.59 K/uL 7.48 K/uL Red Blood Count 3.81 M/uL 3.65 M/uL Hemoglobin 9.1 g/dL 8.8 g/dL Hematocrit 29.1 % 28.0 % Mean Corpuscular Volume 76.4 fL 76.7 fL Mean Corpuscular Hemoglobin 23.9 pg 24.1 pg Mean Corpuscular Hemoglobin Concent 31.3 g/dl 31.4 g/dl RDW Standard Deviation 55.6 fL 56.5 fL RDW Coefficient of Variation 19.7 % 20.0 % Platelet Count 518 K/uL 544 K/uL Mean Platelet Volume 8.2 fL 8.4 fL Sodium Level 133 mmol/L 130 mmol/L Potassium Level 4.9 mmol/L 4.2 mmol/L Chloride Level 99 mmol/L 95 mmol/L Carbon Dioxide Level 27 mmol/L 29 mmol/L Anion Gap 7.0 mmol/L 6.0 mmol/L Blood Urea Nitrogen 19 mg/dl 22 mg/dl Creatinine 0.92 mg/dl 1.20 mg/dl Est Creatinine Clear Calc Drug Dose 70.3 ml/min 53.9 ml/min Estimated GFR () 102.2 74.1 Estimated GFR (Non- 88.2 64.0 BUN/Creatinine Ratio 20.6 18.0 Random Glucose 127 mg/dl 145 mg/dl Calcium Level 9.5 mg/dl 9.0 mg/dl Prothrombin Time 14.9 SECONDS Prothromb Time International Ratio 1.4 Neutrophils (%) (Auto) 76.0 % Lymphocytes (%) (Auto) 11.5 % Monocytes (%) (Auto) 11.0 % Eosinophils (%) (Auto) 0.8 % Basophils (%) (Auto) 0.3 % Neutrophils # (Auto) 5.69 K/uL Lymphocytes # (Auto) 0.86 K/uL Monocytes # (Auto) 0.82 K/uL Eosinophils # (Auto) 0.06 K/uL Basophils # (Auto) 0.02 K/uL Immature Granulocyte % (Auto) 0.4 % Immature Granulocyte # (Auto) 0.03 K/uL Assessment and Plan POD #1 s/p left HALN AFVSS. Will d/c crump catheter this morning; TOV. Advance to a mechanical soft diet as tolerated. Hep lock after lunch if tolerating PO. Encourage use of IS. Encourage ambulation to hallway after breakfast. Suspect the pt will remain inpatient overnight to monitor H&H and for pain control, but may be able to go home after lunch today if doing very well. The pt was seen and assessed with Dr. Mesha this morning. Discharge planning: home
[2017-05-03] MEDS ORDERED: CLC100 PO (08:29)
[2017-05-03] MEDS ORDERED: ACET-749 PO (08:29)
--- NOTE | 2017-05-03 08:30 | Discharge Instructions ---
Discharge Instructions Date of Service May 03, 2017. Admission Reason for Admission: Left Renal Mass Discharge Discharge Diagnosis / Problem: Left renal mass Discharge Goals Goal(s): Decrease discomfort, Improve function, Increase independence, Improve disease control, Improve nutritional status, Diagnostic testing, Therapeutic intervention Activity Recommendations Activity Limitations: per Instructions/Follow-up section Shower/Bathe: tomorrow 1. Do not lift >15lbs x 6 weeks. 2. No heavy exercise x 6 weeks. You may engage in light activity such as walking and stairs as tolerated. 3. Do not drive x [address] while taking narcotics. 4. Follow-up as scheduled. Please call our office at [phone] if you need to reschedule for any reason. . . Current Hospital Diet Hospital Diet(s): Regular Diet Discharge Diet Recommended Diet: Regular Diet Procedures Procedures Performed: Left Laparoscopic Hand-Assisted Nephrectomy Pending Studies Studies pending at discharge: yes (renal pathology) List of pending studies: left renal mass pathology Medical Emergencies . Who to Call and When: Medical Emergencies: If at any time you feel your situation is an emergency, please call 911 immediately. . Non-Emergent Contact Non-Emergency issues call your: Urologist Call Non-Emergent contact if: temperature is above 101.5, your pain is not controlled, your pain is worsening, your pain is unusual for you, your pain is concerning you, you have any medication questions . . "Provider Documentation" section prepared by Mary Perez. . VTE Core Measure Inpt VTE Proph given/why not?: Unfractionated heparin SQ, SCD's [place] Drug Monitoring Program Search Results: patient reviewed within database, no issues identified
[2017-05-03 08:32] LABS: ANISOCYTOSIS PRESENT; COMPLETE YES; HYPOCHROMIA PRESENT
--- NOTE | 2017-05-03 08:55 | Anesthesiology Progress Note ---
Anesthesia Post Op Note Date & Time May 03, 2017 at 08:54 Vital Signs Vital Signs Past 12 Hours Date Time Temp Pulse Resp B/P (MAP) Pulse Ox O2 Delivery O2 Flow Rate FiO2 05/03/17 08:05 36.4 47 16 113/68 (83) 96 Room Air 05/03/17 07:15 94 Room Air 2.0 05/03/17 04:03 36.5 56 15 118/71 (87) 94 Room Air 05/02/17 23:45 Nasal Cannula 2.0 05/02/17 23:45 36.5 50 15 113/68 (83) 96 Room Air Notes Mental Status: alert / awake / arousable, participated in evaluation Pt Amnestic to Procedure: Yes Nausea / Vomiting: adequately controlled Pain: adequately controlled Airway Patency, RR, SpO2: stable & adequate BP & HR: stable & adequate Hydration State: stable & adequate Anesthetic Complications: no major complications apparent
[2017-05-03 12:00] VITALS: BP 112/71; PULSE 50; TEMP 36.4; O2SAT 96
[2017-05-03 15:06] VITALS: BP 114/76; PULSE 51; TEMP 36.4; O2SAT 95
[2017-05-03] MEDS: ONDANSETRON INJ 2 MG/ML 2 ML VIAL IV PRN (23:25)
[2017-05-04 00:07] VITALS: BP 119/70; PULSE 54; TEMP 36.3; O2SAT 93
[2017-05-04] MEDS: LACTATED RINGER'S 1000ML 1,000 ML IV SCH ×3 (01:50→20:45)
[2017-05-04] MEDS: ACETAMINOPHEN 500 MG TAB PO SCH ×3 (06:00→18:05)
[2017-05-04 06:25] LABS: BASO % 0.7 %; BASO ABS # 0.03 K/uL (0-0.2); EOS % 1.1 %; HEMATOCRIT 29.3 % (42-52); IG% 0.4 %; LYMPH ABS # 0.73 K/uL (1.2-3.4); MEAN CELL VOLUME 76.9 fL (80-100); MEAN CORPUSCULAR HEMOGLOBIN 24.1 pg (25-34); MEAN CORPUSCULAR HGB CONC 31.4 g/dl (32-36); MEAN PLATELET VOLUME 8.3 fL (7.4-10.4); MONO % 9.9 %; NEUT % 71.9 %; PLATELET COUNT 537 K/uL (130-400); RED BLOOD COUNT 3.81 M/uL (4.7-6.1); WHITE BLOOD COUNT 4.56 K/uL (4.8-10.8)
[2017-05-04 07:00] LABS: BUN/CREATININE RATIO 17.3 (10-20); CREATININE 0.99 mg/dl (0.60-1.40); POTASSIUM 4.1 mmol/L (3.5-5.1)
[2017-05-04 07:03] VITALS: BP 117/78; PULSE 57; TEMP 36.5; O2SAT 95
[2017-05-04 07:10] LABS: ANISOCYTOSIS PRESENT; COMPLETE YES; HYPOCHROMIA PRESENT; MICROCYTOSIS PRESENT; SPHEROCYTE 1+
[2017-05-04] MEDS ORDERED: MAGNESIUM HYDROXIDE SUSP 30 ML UDC PO PRN (08:15)
[2017-05-04] MEDS ORDERED: BISACODYL 10 MG SUPP PR PRN (08:15)
--- NOTE | 2017-05-04 08:24 | Progress Note ---
Subjective Date of Service: May 04, 2017. Subjective Pt evaluation today including: conversation w/ patient, chart review, lab review Voiding: no voiding problems 62 yo male s/p left HALN. Pt had 900ml of emesis yesterday afternoon. None since. Currently tolerating clear liquids, but says he is not hungry and feels bloated. Denies flatus or BM. He also c/o hiccups and some belching. Voiding without difficulty. He has not yet been ambulatory to the hallways. H&H stable this morning at 9.2 and 29.3. Cr remains normal. Review of Systems Constitutional: No fever, No chills Respiratory: No shortness of breath Cardiac: No chest pain Abdomen: + see HPI, + pain, + constipation, No nausea, No vomiting Male : No dysuria, No hematuria Heme: No abnormal bleeding/bruising Objective Vital Signs Date Time Temp Pulse Resp B/P (MAP) Pulse Ox O2 Delivery O2 Flow Rate FiO2 05/04/17 07:03 36.5 57 16 117/78 (91) 95 Room Air 05/04/17 00:07 36.3 54 16 119/70 (86) 93 Room Air 05/03/17 20:30 Room Air 05/03/17 15:23 Room Air 05/03/17 15:06 36.4 51 16 114/76 (89) 95 Room Air 05/03/17 12:00 36.4 50 16 112/71 (85) 96 Room Air Physical Exam General Appearance: no apparent distress, + thin Eyes: normal inspection ENT: hearing grossly normal Neck: no JVD Respiratory/Chest: no respiratory distress, no accessory muscle use Cardiovascular: no JVD Abdomen: + pertinent finding (abdominal incisions c/d/i) Extremities: normal inspection Neurologic/Psychiatric: alert, normal mood/affect, oriented x 3 Skin: normal color Laboratory Results Last 24 Hours Test 05/04/17 05:36 White Blood Count 4.56 K/uL Red Blood Count 3.81 M/uL Hemoglobin 9.2 g/dL Hematocrit 29.3 % Mean Corpuscular Volume 76.9 fL Mean Corpuscular Hemoglobin 24.1 pg Mean Corpuscular Hemoglobin Concent 31.4 g/dl Platelet Count 537 K/uL Mean Platelet Volume 8.3 fL Neutrophils (%) (Auto) 71.9 % Lymphocytes (%) (Auto) 16.0 % Monocytes (%) (Auto) 9.9 % Eosinophils (%) (Auto) 1.1 % Basophils (%) (Auto) 0.7 % Neutrophils # (Auto) 3.28 K/uL Lymphocytes # (Auto) 0.73 K/uL Monocytes # (Auto) 0.45 K/uL Eosinophils # (Auto) 0.05 K/uL Basophils # (Auto) 0.03 K/uL RDW Standard Deviation 56.5 fL RDW Coefficient of Variation 20.1 % Immature Granulocyte % (Auto) 0.4 % Immature Granulocyte # (Auto) 0.02 K/uL Hypochromasia PRESENT Anisocytosis PRESENT Microcytosis PRESENT Spherocytes 1+ Sodium Level 132 mmol/L Potassium Level 4.1 mmol/L Chloride Level 96 mmol/L Carbon Dioxide Level 30 mmol/L Anion Gap 6.0 mmol/L Blood Urea Nitrogen 17 mg/dl Creatinine 0.99 mg/dl Est Creatinine Clear Calc Drug Dose 65.4 ml/min Estimated GFR () 93.6 Estimated GFR (Non- 80.7 BUN/Creatinine Ratio 17.3 Random Glucose 110 mg/dl Calcium Level 8.0 mg/dl Assessment and Plan POD #2 s/p left HALN AFVSS. Will keep him on clear liquids until he begins passing flatus or BM. Will order MOM, Miralax, and a Dulcolax suppository to assist with bowel function. Encourage use of IS. Encourage ambulation to hallway today. Will also order PT/OT eval. D/c pending improved bowel function and nutritional status. Discharge planning: home
[2017-05-04 09:00] VITALS: O2SAT 95
[2017-05-04] MEDS: DOCUSATE SODIUM 100 MG CAP PO SCH ×2 (09:22→20:31)
[2017-05-04] MEDS: HEPARIN SOD 5000 UNIT/0.5 ML CARP SQ SCH ×2 (09:37→20:43)
[2017-05-04] MEDS: POLYETHYLENE (MIRALAX) 17 GM PACK PO SCH (10:49)
[2017-05-04 15:11] VITALS: BP 137/82; PULSE 55; TEMP 36.4; O2SAT 95
[2017-05-04 22:47] VITALS: BP 124/70; PULSE 61; TEMP 36.4; O2SAT 96
[2017-05-05] MEDS: ACETAMINOPHEN 500 MG TAB PO SCH ×2 (00:31→06:03)
[2017-05-05] MEDS: LACTATED RINGER'S 1000ML 1,000 ML IV SCH (06:31)
[2017-05-05 06:50] VITALS: BP 114/71; PULSE 54; TEMP 36.4; O2SAT 96
[2017-05-05 07:58] LABS: BASO % 0.8 %; BASO ABS # 0.03 K/uL (0-0.2); EOS % 1.3 %; HEMATOCRIT 30.4 % (42-52); IG% 0.3 %; LYMPH % 16.4 %; LYMPH ABS # 0.62 K/uL (1.2-3.4); MEAN CELL VOLUME 77.9 fL (80-100); MEAN CORPUSCULAR HEMOGLOBIN 23.6 pg (25-34); MEAN CORPUSCULAR HGB CONC 30.3 g/dl (32-36); MEAN PLATELET VOLUME 8.3 fL (7.4-10.4); MONO % 12.5 %; NEUT % 68.7 %; PLATELET COUNT 528 K/uL (130-400); WHITE BLOOD COUNT 3.77 K/uL (4.8-10.8)
[2017-05-05 08:28] LABS: BUN/CREATININE RATIO 13.4 (10-20); CALCIUM 8.9 mg/dl (8.5-10.1); CREATININE 0.91 mg/dl (0.60-1.40); POTASSIUM 3.9 mmol/L (3.5-5.1)
[2017-05-05 08:32] LABS: ANISOCYTOSIS PRESENT; COMPLETE YES; HYPOCHROMIA PRESENT; MICROCYTOSIS PRESENT
[2017-05-05] MEDS: POLYETHYLENE (MIRALAX) 17 GM PACK PO SCH (08:51)
[2017-05-05] MEDS: DOCUSATE SODIUM 100 MG CAP PO SCH (08:51)
[2017-05-05] MEDS: HEPARIN SOD 5000 UNIT/0.5 ML CARP SQ SCH (08:51)
[2017-05-05] MEDS ORDERED: NURSING VERBAL MED ORDER ONE (09:00)
[2017-05-05] MEDS ORDERED: ACET-749 PO (09:24)
[2017-05-05] MEDS ORDERED: CLC100 PO (09:24)
--- NOTE | 2017-05-05 09:54 | Progress Note ---
Subjective Date of Service: May 05, 2017. (Haven Keys CRNP) Subjective Pt evaluation today including: conversation w/ patient, lab review, review of studies Voiding: no voiding problems s/p left HALN POD #3 Doing better. Tolerating diet. No further nausea. OOB ambulating in the hallway. Showered this am. labs are fine. minimal pain. (Haven Keys CRNP) Review of Systems Constitutional: No fever, No chills Eyes: No worsening of vision ENT: No hearing loss Respiratory: No cough Cardiac: No chest pain Abdomen: No nausea, No vomiting Male : No dysuria Psychiatric: No depression symptoms Heme: No abnormal bleeding/bruising (Haven Keys CRNP) Objective Vital Signs Date Time Temp Pulse Resp B/P (MAP) Pulse Ox O2 Delivery O2 Flow Rate FiO2 05/05/17 06:50 36.4 54 16 114/71 (85) 96 Room Air 05/04/17 23:40 Room Air 05/04/17 22:47 36.4 61 16 124/70 (88) 96 Room Air 05/04/17 16:00 Room Air 05/04/17 15:11 36.4 55 18 137/82 (100) 95 Room Air (Haven Keys CRNP) Physical Exam General Appearance: WD/WN, no apparent distress ENT: hearing grossly normal Respiratory/Chest: no respiratory distress, no accessory muscle use Extremities: normal inspection, no pedal edema, no calf tenderness Neurologic/Psychiatric: alert, normal mood/affect, oriented x 3 Skin: normal color, warm/dry, no rash (Haven Keys CRNP) Laboratory Results Last 24 Hours Test 05/05/17 07:21 White Blood Count 3.77 K/uL Red Blood Count 3.90 M/uL Hemoglobin 9.2 g/dL Hematocrit 30.4 % Mean Corpuscular Volume 77.9 fL Mean Corpuscular Hemoglobin 23.6 pg Mean Corpuscular Hemoglobin Concent 30.3 g/dl Platelet Count 528 K/uL Mean Platelet Volume 8.3 fL Neutrophils (%) (Auto) 68.7 % Lymphocytes (%) (Auto) 16.4 % Monocytes (%) (Auto) 12.5 % Eosinophils (%) (Auto) 1.3 % Basophils (%) (Auto) 0.8 % Neutrophils # (Auto) 2.59 K/uL Lymphocytes # (Auto) 0.62 K/uL Monocytes # (Auto) 0.47 K/uL Eosinophils # (Auto) 0.05 K/uL Basophils # (Auto) 0.03 K/uL RDW Standard Deviation 57.3 fL RDW Coefficient of Variation 20.2 % Immature Granulocyte % (Auto) 0.3 % Immature Granulocyte # (Auto) 0.01 K/uL Hypochromasia PRESENT Anisocytosis PRESENT Microcytosis PRESENT Sodium Level 134 mmol/L Potassium Level 3.9 mmol/L Chloride Level 98 mmol/L Carbon Dioxide Level 29 mmol/L Anion Gap 7.0 mmol/L Blood Urea Nitrogen 12 mg/dl Creatinine 0.91 mg/dl Est Creatinine Clear Calc Drug Dose 71.1 ml/min Estimated GFR () 103.6 Estimated GFR (Non- 89.4 BUN/Creatinine Ratio 13.4 Random Glucose 82 mg/dl Calcium Level 8.9 mg/dl (Haven Keys CRNP) Assessment and Plan left renal mass s/p HALN. Pt doing better today. Tolerating pain and diet. No further nausea. Rx on chart for pain medication and stool softener. Plan to discharge home today. Discharge planning: home (Haven Keys CRNP) Progressing appropriately. Stable renal function, no drift in his hct. Prepared for d/c home today. 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
[2017-05-05 11:24] VITALS: BP 114/71; PULSE 54; TEMP 36.4; O2SAT 96
--- NOTE | 2017-05-09 08:57 | Discharge Summary ---
Discharge Summary Date of Service May 09, 2017. Discharge Summary Admission Date: May 02, 2017 at 10:22 Discharge Date: May 05, 2017 Discharge Disposition: Home Principal Diagnosis: Renal cell carcinoma Procedures: Left hand-assisted laparoscopic radical nephrectomy Medication Reconciliation New Medications: Acetaminophen/Codeine (Tylenol W/Codeine #3) 300 Mg/30 Mg Tab 1-2 TAB PO Q4H PRN for Pain, #20 TAB Docusate Sodium (Docusate Sodium) 100 Mg Cap 100 MG PO BID for Constipation, #60 CAP Hospital Course The patient was admitted on 05/02/2017 for a left hand-assisted laparoscopic radical nephrectomy. Details of this procedure is dictated previously an operative report, however in summary he tolerated the procedure quite well. Of note he was extremely anemic on arrival at the hospital - presumed to be anemia of chronic disease as I suspect he has had this tumor for several months if not years. He received a preoperative transfusion 1 week prior to the procedure and an additional transfusion the day prior to the procedure. Fortunately he did not require any further transfusions during his hospitalization. Postoperatively, he progressed extremely well. Full catheter was removed postoperative day one and he voided successfully. Laboratory examinations remained stable. He was ambulatory, he was tolerating a diet, and he had a bowel movement prior to discharge. He was subsequently discharged home on the morning of postoperative day 3 in stable condition. 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 There is no evidence of lymph node disease or other immediate metastatic spread. Total time spent on discharge = This includes examination of the patient, discharge planning, medication reconciliation, and communication with other providers. Discharge Instructions Please see previously written discharge instructions
== END 2017-05-05 10:35 | disposition home or self-care (01) | DRG 658 ==
LOC: C.ACU 05:23 → C.MSW 10:22 → ENRESERV 10:55
PROVIDERS: ADMIT Urology; ATTEND Urology
PROC: 0TT10ZZ Resection of Left Kidney, Open Approach (ICD-10-PCS; principal; 2017-05-02 07:30)
DX: C64.2 Malignant neoplasm of left kidney, except renal pelvis (principal); D63.0 Anemia in neoplastic disease; R91.1 Solitary pulmonary nodule